=== PATIENT | female | born 1985 | race Caucasian/White ===

== ENCOUNTER 2018-07-30 19:53 | Emergency (ER) | payer BC ==
[~2018-07-30] VITALS: Ht 157.5 cm; Wt 72.9 kg
[~2018-07-30 19:53] MED LIST: PRENAT PO
[2018-07-30 19:58] VITALS: Ht 157.5 cm; Wt 72.9 kg
--- NOTE | 2018-07-30 22:54 | ERD ---
ER Documentation Chief Complaint Chief Complaint [id number] PREG; URINARY DISCOMFORT AND CLOUDY [id number]; HPI This is a 32-year-old female patient who presents to the emergency room with complaint of cloudy urine times 1 week and right-sided flank pain starting today. Patient has history of hydronephrosis and kidney infections. Patient is 8 weeks , , first child had to be delivered at 35 weeks due to hydro-nephrosis. Denies fevers, no vomiting, no diarrhea, + nausea. Patient denies vaginal bleeding, no cramping, patient is receiving care and states there are no problems with this . ROS All systems reviewed and are negative except as per history of present illness. Medications Home Meds Reported Medications Multivit/Min/Fol Ac/Iron/Pren* ( S*) 1 Tab Tab, 1 TAB PO DAILY, TAB 06/12/15 Allergies Allergies: Coded Allergies: latex (Verified Allergy, Unknown, 07/27/15) pt. states vaginal irritation codeine (Unverified Adverse Reaction, Unknown, 07/27/15) pt. 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 Medical and Surgical Hx: pt denies Surgical Hx History of Surgery: Yes (, LEFT KIDNEY REMOVAL) Hx Psychiatric Problems: Yes (DEPRESSION) Hx Alcohol Use: No Hx Substance Use: No Hx Tobacco Use: No Smoking Status: Never smoker FmHx Family History: No diabetes, No coronary disease, No other Physical Exam Vitals Vital Signs Date Temp Pulse Resp B/P (MAP) Pulse Ox O2 O2 Flow FiO2 Time Delivery Rate 07/31/18 98.5 70 20 109/64 100 Room Air 02:30 (79) 07/30/18 98.2 72 19 121/59 99 19:58 (79) Physical Exam Const: No acute distress Head: Atraumatic Eyes: Normal Conjunctiva ENT: Normal External Ears, Nose and Mouth. Neck: Full range of motion. No meningismus. Resp: Clear to auscultation bilaterally Cardio: Regular rate and rhythm, no murmurs Abd: Soft, non tender, non distended. Normal bowel sounds Skin: No petechiae or rashes Back: No midline tenderness, R flank tenderness Ext: No cyanosis, or edema Neur: Awake and alert Psych: Normal Mood and Affect Result Diagram: 4/225807/30/182258 Results 24 hrs Laboratory Tests Test 07/30/18 22:49 07/30/18 22:51 07/30/18 22:59 POC Beta HCG, Qualitative POSITIVE Bedside Urine pH (LAB) 6.0 Bedside Urine Protein (LAB) Negative Bedside Urine Glucose (UA) Negative Bedside Urine Ketones (LAB) Negative Bedside Urine Blood Negative Bedside Urine Nitrite (LAB) Negative Bedside Urine Leukocyte Esterase Negative (L White Blood Count 15.4 10^3/ul Red Blood Count 4.29 10^6/ul Hemoglobin 12.2 g/dl Hematocrit 37.2 % Mean Corpuscular Volume 86.7 fl Mean Corpuscular Hemoglobin 28.4 pg Mean Corpuscular 32.8 g/dl Hemoglobin Concent Red Cell Distribution Width 13.0 % Platelet Count 391 10^3/UL Mean Platelet Volume 8.8 fl Immature Granulocytes % 0.400 % Neutrophils % 68.8 % Lymphocytes % 24.1 % Monocytes % 5.8 % Eosinophils % 0.6 % Basophils % 0.3 % Nucleated Red Blood Cells % 0.0 /100WBC Immature Granulocytes # 0.060 10^3/ul Neutrophils # 10.6 10^3/ul Lymphocytes # 3.7 10^3/ul Monocytes # 0.9 10^3/ul Eosinophils # 0.1 10^3/ul Basophils # 0.0 10^3/ul Nucleated Red Blood Cells # 0.0 10^3/ul Urine Color YELLOW Urine Clarity SLIGHTLY CLOUDY Urine pH 6.0 Urine Specific [place] 1.021 Urine Ketones NEGATIVE mg/dL Urine Nitrite NEGATIVE mg/dL Urine Bilirubin NEGATIVE mg/dL Urine Urobilinogen NEGATIVE mg/dL Urine Leukocyte Esterase NEGATIVE Gary/ul Urine Microscopic RBC 5 /HPF Urine Microscopic WBC 2 /HPF Urine Squamous Epithelial Cells FEW /HPF Urine Bacteria FEW /HPF Urine Mucus FEW /HPF Urine Hemoglobin NEGATIVE mg/dL Urine Glucose NEGATIVE mg/dL Urine Total Protein NEGATIVE mg/dl Sodium Level 142 mmol/L Potassium Level 3.9 mmol/L Chloride Level 105 mmol/L Carbon Dioxide Level 26 mmol/L Anion Gap 11 Blood Urea Nitrogen 11 mg/dl Creatinine 0.82 mg/dl Est Glomerular Filtrat > 60 mL/min Rate mL/min Glucose Level 88 mg/dl Calcium Level 9.8 mg/dl Total Bilirubin 0.2 mg/dl Direct Bilirubin 0.00 mg/dl Indirect Bilirubin 0.2 mg/dl Aspartate Amino Transf (AST/SGOT) 16 IU/L Alanine 17 IU/L Aminotransferase (ALT/SGPT) Alkaline Phosphatase 59 IU/L Total Protein 7.3 g/dl Albumin 4.3 g/dl Globulin 3.00 g/dl Albumin/Globulin Ratio 1.43 Procedures/MDM This is a 32-year-old female patient who presents to the emergency room with concern for right flank pain that started today, cloudy urine started 1 week ago. Patient has history of nephrectomy of left kidney in 2005 and recurring hydronephrosis in right kidney. Patient is concerned that this could be recurrence of her hydronephrosis as she has had this before while with her last delivery was at 35 weeks due to her hydronephrosis. . Denies any complications so far with current , no vaginal bleeding, no cramping, + nausea. ED COURSE: The patient was stable throughout ED course. I kept the patient and/or family informed of laboratory and diagnostic imaging results throughout the ED course. DIAGNOSTIC IMAGING: Unremarkable right kidney. Status post left nephrectomy. Unremarkable urinary bladder.. Read by radiologist. PROCEDURES: None. MEDICATIONS GIVEN: None. MDM: UA negative for acute kidney infection or bladder infection, blood work does not indicate acute infection, kidney failure, kidney insufficiency, or electrolyte imbalance. Ultrasound negative for hydronephrosis, nephrolithiasis, or other etiology that would explain patient's pain in right side. Discussed results with patient including signs and symptoms of infection such as fever, malodorous urine, hematuria. Instructed patient to follow-up with her OB tomorrow. Instructed patient to increase fluid intake. Instructed patient to return to the emergency room immediately for any increased pain, with fever, with vomiting, any other concerning symptoms. DISPOSITION: The patient has been discharge home to follow-up with community physician. Patient provided with lab and US results. Departure Diagnosis: Primary Impression: Genitourinary symptoms Condition: Stable Patient Instructions: Adapting to : First Trimester Referrals: [facility] Additional Instructions: Thank you very much for allowing us to participate in your care. Your health and safety is our top priority at [facility]. Call your primary care doctor TOMORROW for an appointment during the next 2-4 days and bring all the information and medications prescribed. Have prescriptions filled and follow precisely the directions on the label. If the symptoms get worse and your provider is unavailable, return to the Emergency Department immediately. EDMUND FINK NP Jul 30, 2018 22:54
[2018-07-31 02:30] VITALS: BP 109/64; PULSE 70; RESP 20
== END 2018-07-31 02:48 | disposition home or self-care (01) ==
LOC: FTE 19:53
DX: O99.89 Other specified diseases and conditions complicating pregnancy, childbirth and the puerperium (principal); R39.89 Other symptoms and signs involving the genitourinary system; Z3A.08 8 weeks gestation of pregnancy
CPT/HCPCS: 36415; 76775; 80053; 81001; 81003; 81025; 85025; Z7502

== ENCOUNTER 2018-12-04 10:53 | Inpatient (IN) | payer BC ==
[~2018-12-04] VITALS: Ht 154.9 cm; Wt 75.8 kg
[~2018-12-04 10:53] MED LIST changes: +BUPR300T48 PO; +CEPH500C PO; +FERR134T PO
[2018-12-04 11:35] VITALS: Ht 154.9 cm; Wt 75.8 kg
[2018-12-04] MEDS: ACETAMINOPHEN 325 MG TAB PO PRN (13:58)
[2018-12-04] MEDS: CEFAZOLIN 2 GM/50 ML (PMX) 50 ML IVPB SCH ×2 (13:59→21:43)
[2018-12-04] MEDS: ONDANSETRON 4 MG INJ IV PRN (13:59)
[2018-12-04] MEDS ORDERED: BUTORPHANOL 2 MG INJ IV PRN (14:00)
[2018-12-04] MEDS: LACTATED RINGER'S 1,000 ML IV SCH ×2 (14:28→21:44)
[2018-12-04] MEDS: BUPROPION (XL) 150 MG TAB PO SCH (21:44)
[2018-12-05] MEDS: CEFAZOLIN 2 GM/50 ML (PMX) 50 ML IVPB SCH ×3 (05:41→21:53)
[2018-12-05] MEDS: LACTATED RINGER'S 1,000 ML IV SCH ×3 (05:41→22:30)
[2018-12-05] MEDS: DOCUSATE SODIUM 100 MG CAP PO SCH (08:58)
[2018-12-05] MEDS: PRENATAL VITAMIN PO SCH (08:58)
[2018-12-05] MEDS: FERROUS SULFATE (EC) 325 MG TAB PO SCH (08:58)
[2018-12-05] MEDS ORDERED: FERROUS SULFATE (EC) 325 MG TAB PO SCH (09:00)
[2018-12-05] MEDS ORDERED: BUPROPION (XL) 150 MG TAB PO SCH (09:00)
[2018-12-05] MEDS ORDERED: PRENATAL VITAMIN PO SCH (09:00)
[2018-12-05] MEDS: ONDANSETRON 4 MG INJ IV PRN ×3 (13:13→23:37)
[2018-12-05] MEDS: ACETAMINOPHEN 325 MG TAB PO PRN (21:05)
[2018-12-05] MEDS: BUPROPION (XL) 150 MG TAB PO SCH (22:40)
[2018-12-06] MEDS ORDERED: ONDANSETRON INJ 8 MG in DEXTROSE 5% 50 ML IV PRN ×2
[2018-12-06] MEDS: LACTATED RINGER'S 1,000 ML IV SCH (06:16)
[2018-12-06] MEDS: CEFAZOLIN 2 GM/50 ML (PMX) 50 ML IVPB SCH ×2 (06:16→13:49)
[2018-12-06] MEDS ORDERED: DIPHENHYDRAMINE 50 MG INJ IV PRN (06:30)
[2018-12-06] MEDS: FERROUS SULFATE (EC) 325 MG TAB PO SCH (08:41)
[2018-12-06] MEDS: PRENATAL VITAMIN PO SCH (08:42)
[2018-12-06] MEDS: DOCUSATE SODIUM 100 MG CAP PO SCH (08:42)
== END 2018-12-06 16:30 | disposition home or self-care (01) | DRG 832 ==
LOC: OBT 10:53 → L-D 10:55 → OBT 13:20 → L-D 13:20
PROVIDERS: ADMIT Obstetrics & Gynecology; ATTEND Obstetrics & Gynecology
DX: O23.03 Infections of kidney in pregnancy, third trimester (principal); Q60.0 Renal agenesis, unilateral; Z3A.39 39 weeks gestation of pregnancy
CPT/HCPCS: 76775; 76815; 80053; 80307; 81001; 85025; 87086; G0463; J0595; J0690; J1200; J2405; J7120